=== PATIENT | female | born 1955 | race Caucasian/White ===

== ENCOUNTER 2021-12-13 09:49 | Outpatient (CLI) | payer BC | END 2021-12-13 09:50 | disposition home or self-care (01) | LOC: BICMAMMO 09:49 | PROVIDERS: ATTEND Internal Medicine | DX: Z12.31 Encounter for screening mammogram for malignant neoplasm of breast (principal) | CPT/HCPCS: 77063; 77067 ==

== ENCOUNTER 2023-05-16 07:47 | Day surgery (SDC) | payer BC ==
[2023-05-15 10:21] VITALS: BMI 25.8
[2023-05-16] MEDS ORDERED: Oxymetazoline HCl 0.05% (30 ML BOT) ONE ×2 (08:44→09:44)
[2023-05-16] MEDS ORDERED: Lidocaine 1% MPF 2 ML VIAL ONE (09:44)
[2023-05-16] MEDS ORDERED: EPINEPHrine 1 MG/ML AMP ONE ×2 (09:44→10:35)
[2023-05-16] MEDS ORDERED: Lidocaine 1% (PF) 30 ML VIAL ONE ×2 (09:45→10:35)
[2023-05-16] MEDS ORDERED: SUGAMMADEX SODIUM 200 MG/2 ML VIAL ONE ×2 (09:53→10:42)
[2023-05-16] MEDS ORDERED: fentaNYL PF 100 MCG/2 ML SYRINGE ONE (09:53)
[2023-05-16] MEDS ORDERED: fentaNYL 50 mcg/mL 1 mL Vial ONE ×2 (09:53→11:38)
[2023-05-16] MEDS ORDERED: PROPOFOL 200 MG/20 ML VIAL ONE (10:02)
[2023-05-16] MEDS ORDERED: Ondansetron PF 4 MG/2 ML Vial ONE (10:02)
[2023-05-16] MEDS ORDERED: Rocuronium Bromide 10 MG/ML (10ML VIAL) ONE (10:02)
[2023-05-16] MEDS ORDERED: Esmolol 100 MG/10 ML VIAL ONE (10:02)
[2023-05-16] MEDS ORDERED: Dexamethasone 20 MG/5 ML VIAL ONE (10:02)
[2023-05-16] MEDS ORDERED: Hydrocodone-Acetamin 15 ML UDCUP ONE (12:14)
== END 2023-05-16 13:30 | disposition home or self-care (01) ==
LOC: SDC 07:47
PROVIDERS: ATTEND Otolaryngology Plastic Surgery within the Head & Neck
DX: J32.4 Chronic pansinusitis (principal); J33.8 Other polyp of sinus; J34.3 Hypertrophy of nasal turbinates; J30.89 Other allergic rhinitis; H61.23 Impacted cerumen, bilateral; J34.89 Other specified disorders of nose and nasal sinuses; E03.9 Hypothyroidism, unspecified; Z79.890 Hormone replacement therapy
CPT/HCPCS: 88304; J0171; J1100; J2001; J2405; J2704; J3010

== ENCOUNTER 2023-06-13 12:45 | Outpatient (CLI) | payer BC | END 2023-06-13 12:46 | disposition home or self-care (01) | LOC: BICMAMMO 12:45 | PROVIDERS: ATTEND Internal Medicine | DX: Z12.31 Encounter for screening mammogram for malignant neoplasm of breast (principal) | CPT/HCPCS: 77063; 77067 ==